=== PATIENT | male | born 1940 | race Caucasian/White ===

== ENCOUNTER 2016-12-23 19:52 | Inpatient (IN) | payer OTHER ==
[2016-12-23 20:13] VITALS: BMI 28.2
--- NOTE | 2016-12-23 20:18 | PDOC ---
History of Present Illness - General History Source: Patient Exam Limitations: No Limitations <Dawood Preciado - Last Filed: 12/23/16 21:54> - General History Source: Patient Exam Limitations: No Limitations - History of Present Illness Initial Comments: 12/23/16 20:32 The patient is a 76 year old male with significant past medical history of hypertension, diabetes, liver cirrhosis (nonalcoholic related) and asthma who presents to the ED with midsternal chest pain that began earlier today. Patient reports he was in his usual state of health when approximately 12pm he developed a nonradiating midsternal chest pain that he describes as feeling restricted. Reports associated diaphoresis and SOB worsen with exertion. Denies lightheadedness, jaw pain, shoulder pain, arm pain, leg swelling, nausea , or vomiting. States he is being followed-up by Dr. Prado for a yearly check- up where he has an ECHO done every year for unknown reasons. The patient denies fever, chills, cough, abdominal pain, and diarrhea. Allergies: NKDA Social History: Denies alcohol, tobacco, or drug use. Past Surgical History: None reported PCP: Dr. Micheline Elias Cardio: Dr. Robi Prado <Nazia Alvarez - Last Filed: 12/23/16 23:10> - General Chief Complaint: Chest Pain Stated Complaint: CHEST PAIN Time Seen by Provider: 12/23/16 20:10 Past History - Past Medical History Diabetes: Yes (type 2) HTN: Yes - Psycho/Social/Smoking Cessation Hx Suicidal Ideation: No Smoking History: Former smoker Have you smoked in the past 12 months: No Information on smoking cessation initiated: No <Dawood Preciado - Last Filed: 12/23/16 21:54> <Nazia Alvarez - Last Filed: 12/23/16 23:10> - Past Medical History Allergies/Adverse Reactions: Allergies Allergy/AdvReac Type Severity Reaction Status Date / Time No Known Allergies Allergy Verified 12/23/16 20:10 Home Medications: Ambulatory Orders Losartan Potassium [Cozaar -] 50 mg PO DAILY 12/23/16 Metformin HCl [Glucophage -] 500 mg PO BID 12/23/16 Salmeterol/Fluticasone [Advair 500Mcg/50Mcg -] 1 inh IH BID 12/23/16 Review of Systems - Review of Systems Able to Perform ROS?: Yes Comments:: 12/23/16 20:32 CONSTITUTIONAL: +diaphoresis Absent: fever, chills, generalized weakness, malaise, loss of appetite HEENT: Absent: rhinorrhea, nasal congestion, throat pain, throat swelling, difficulty swallowing, mouth swelling, ear pain, eye pain, visual Changes CARDIOVASCULAR: +chest pain Absent: syncope, palpitations, irregular heart rate, lightheadedness , peripheral edema RESPIRATORY: +SOB, dyspnea on exertion Absent: cough, orthopnea, wheezing, stridor, hemoptysis GASTROINTESTINAL: Absent: abdominal pain, abdominal distension, nausea, vomiting, diarrhea, constipation, melena, hematochezia GENITOURINARY: Absent: dysuria, frequency, urgency, hesitancy, hematuria, flank pain, genital pain MUSCULOSKELETAL: Absent: myalgia, arthralgia, joint swelling SKIN: Absent: rash, itching, pallor NEUROLOGIC: Absent: headache, focal weakness or paresthesias, dizziness, unsteady gait, seizure, mental status changes, bladder or bowel incontinence <Nazia Alvarez - Last Filed: 12/23/16 23:10> *Physical Exam - Vital Signs Last Vital Signs Temp Pulse Resp BP Pulse Ox 97.8 F 78 20 165/61 98 12/23/16 20:11 12/23/16 20:11 12/23/16 20:11 12/23/16 20:11 12/23/16 20:11 <Dawood Preciado - Last Filed: 12/23/16 21:54> - Vital Signs Last Vital Signs Temp Pulse Resp BP Pulse Ox 97.8 F 78 20 165/61 98 12/23/16 20:11 12/23/16 20:11 12/23/16 20:11 12/23/16 20:11 12/23/16 20:11 - Physical Exam Comments: 12/23/16 20:32 GENERAL: Well developed, well nourished. Awake and alert. No acute distress. HEENT: Normocephalic, atraumatic. PERRLA, EOMI. No conjunctival pallor. Sclera are non- icteric. Moist mucous membranes. Oropharynx is clear. NECK: Supple. Full ROM. No JVD. No thyromegaly. No lymphadenopathy. CARDIOVASCULAR: Regular rate and rhythm. Holosystolic murmur that radiates to the carotids. No rubs or gallops. PULMONARY: No evidence of respiratory distress. Lungs clear to auscultation bilaterally. No wheezing, rales or rhonchi. ABDOMINAL: Soft. Non-tender. Non-distended. No rebound or guarding. No organomegaly. Normoactive bowel sounds. MUSCULOSKELETAL Normal range of motion at all joints. No bony deformities or tenderness. No CVA tenderness. EXTREMITIES: No cyanosis. No clubbing. No edema. No calf tenderness. SKIN: Warm and dry. Normal capillary refill. No rashes. No jaundice. NEUROLOGICAL: Alert, awake, appropriate. Cranial nerves 2-12 intact. Moving all extremities. No gross focal neurological deficits. <Nazia Alvarez - Last Filed: 12/23/16 23:10> Heart Score/ECG Review - ECG Impressions Comment:: 12/23/16 20:33 NSR @80bpm Cannot r/o anterior infarct Abnormal ECG <Nazia Alvarez - Last Filed: 12/23/16 23:10> ED Treatment Course - LABORATORY CBC & Chemistry Diagram: 12/23/16 20:15 12/23/16 20:15 <Dawood Preciado - Last Filed: 12/23/16 21:54> - LABORATORY CBC & Chemistry Diagram: 12/23/16 20:15 12/23/16 20:15 <Nazia Alvarez - Last Filed: 12/23/16 23:10> Medical Decision Making - Medical Decision Making 12/23/16 21:54 Dr. Preciado: The scribe's documentation has been prepared under my direction and personally reviewed by me in its entirery. I confirm that the note above accurately reflects all work, treatment, procedures, and medical decision making performed by me. Pt with c/o cp today. chest pain free right now. Troponin 0.09. Will admit to tele. <Dawood Preciado - Last Filed: 12/23/16 21:54> - Medical Decision Making 12/23/16 22:[address] Micheline Elias (via answering service) at 22:26 Awaiting call back 12/23/16 23:01 Patient's case discussed with Dr. Elias at 23:01 <Nazia Alvarez - Last Filed: 12/23/16 23:10> *DC/Admit/Observation/Transfer - Discharge Dispostion Admit: Yes <Dawood Preciado - Last Filed: 12/23/16 21:54> - Attestations Scribe Attestion: 12/23/16 20:33 Documentation prepared by Nazia Alvarez, acting as medical insurance verifier for Dawood Preciado MD <Nazia Alvarez - Last Filed: 12/23/16 23:10> Diagnosis at time of Disposition: Chest pain Qualifiers: Chest pain type: precordial pain Qualified Code(s): R07.2 - Precordial pain - Discharge Dispostion Condition at time of disposition: Stable - Referrals Referrals: Micheline Elias MD [Primary Care Provider] -
[2016-12-23] MEDS ORDERED: ASPIRIN 81 MG CHEWABLE TABLETS PO ONE (20:27)
[2016-12-23] MEDS ORDERED: ASPIRIN 81 MG CHEWABLE TABLETS ONE (20:30)
[2016-12-23 20:44] LABS: BASOPHIL 1.3 % (0-2.0); MCHC 33.1 g/dl (32.0-35.9); MEAN CELL VOLUME 90.5 fl (80-96); MEAN PLT VOLUME 8.7 fl (7.5-11.1); PLATELET COUNT 181 K/MM3 (134-434)
[2016-12-23 20:56] LABS: INR 1.06 (0.82-1.09); PROTHROMBIN TIME (PATIENT) 11.7 SEC (9.98-11.88)
[2016-12-23 21:12] LABS: ALBUMIN 2.8 g/dl (3.4-5.0); BILIRUBIN,TOTAL 0.8 mg/dL (0.2-1.0); CALCIUM 8.2 mg/dL (8.5-10.1); CHOLESTEROL 245 mg/dL (50-200); COCKROFT - GAULT 56.96; CREATININE 1.2 mg/dL (0.7-1.3); MAGNESIUM 2.4 mg/dL (1.8-2.4); TOT PROT 6.8 g/dl (6.4-8.2)
[2016-12-23 21:14] LABS: TROPONIN I 0.09 ng/ml (0.00-0.05)
[2016-12-24 04:42] LABS: LDL CHOLESTEROL (ONLY SJRH) 141 mg/dL (5-100)
[2016-12-24 04:56] LABS: TROPONIN I 0.1 ng/ml (0.00-0.05)
--- NOTE | 2016-12-24 07:29 | HP ---
Admitting History and Physical - Primary Care Physician PCP: Micheline Elias - Admission Chief Complaint: chest pain, dyspnea History of Present Illness: For past month pt has had exertional dyspnea and chest tightness upon walking up one flight of stairs. Yesterday pain lasted several hours so he came to er, upon arrival he was already pain free. Also noted to be anemic-/laura thought it was upper GI loss-had colonosocpy in 2016 with some polyps, but no major issues. History Source: Patient Limitations to Obtaining History: No Limitations - Past Medical History Cardiovascular: Yes: Aortic Stenosis, HTN, Hyperlipdemia Hepatobiliary: Yes: Cirrhosis (non-alcoholic) Heme/Onc: Yes: Anemia Endocrine: Yes: Diabetes Mellitus - Past Surgical History Past Surgical History: Yes: Cataract Removal - Smoking History Smoking history: Former smoker Have you smoked in the past 12 months: No - Alcohol/Substance Use Hx Alcohol Use: No - Social History ADL: Independent History of Recent Travel: No Home Medications - Allergies Allergies/Adverse Reactions: Allergies Allergy/AdvReac Type Severity Reaction Status Date / Time No Known Allergies Allergy Verified 12/23/16 20:10 - Home Medications Home Medications: Ambulatory Orders Losartan Potassium [Cozaar -] 50 mg PO DAILY 12/23/16 Metformin HCl [Glucophage -] 500 mg PO BID 12/23/16 Salmeterol/Fluticasone [Advair 500Mcg/50Mcg -] 1 inh IH BID 12/23/16 Family Disease History - Family Disease History Family Disease History: Other: Father ( of old age), Mother ( of TB) Review of Systems - Review of Systems Constitutional: reports: No Symptoms Eyes: reports: No Symptoms HENT: reports: No Symptoms Neck: reports: No Symptoms Cardiovascular: reports: Chest Pain, Shortness of Breath (exertional) Genitourinary: reports: No Symptoms Musculoskeletal: reports: No Symptoms Integumentary: reports: No Symptoms Neurological: reports: Headache Physical Examination Vital Signs: Vital Signs Temperature 97.8 F 12/23/16 20:11 Pulse Rate 74 12/24/16 05:45 Respiratory Rate 20 12/24/16 05:45 Blood Pressure 122/61 12/24/16 05:45 O2 Sat by Pulse Oximetry (%) 96 12/24/16 02:18 Constitutional: Yes: Well Nourished, No Distress Eyes: Yes: Conjunctiva Clear HENT: Yes: Normocephalic Neck: Yes: Trachea Midline Cardiovascular: Yes: Regular Rate and Rhythm, Murmur Respiratory: Yes: CTA Bilaterally Gastrointestinal: Yes: Normal Bowel Sounds, Soft, Abdomen, Obese Extremities: Yes: WNL Edema: No Neurological: Yes: WNL ...Motor Strength: WNL Imaging - Results EKG: Report Reviewed Problem List - Problems (1) Chest pain Code(s): R07.9 - CHEST PAIN, UNSPECIFIED Qualifiers: Chest pain type: precordial pain Qualified Code(s): R07.2 - Precordial pain (2) Hypertension Code(s): I10 - ESSENTIAL (PRIMARY) HYPERTENSION Qualifiers: Hypertension type: essential hypertension Qualified Code(s): I10 - Essential (primary) hypertension (3) Diabetes mellitus Code(s): E11.9 - TYPE 2 DIABETES MELLITUS WITHOUT COMPLICATIONS Qualifiers: Diabetes mellitus type: type 2 Diabetes mellitus complication status: without complication (4) Hyperlipidemia Code(s): E78.5 - HYPERLIPIDEMIA, UNSPECIFIED Qualifiers: Hyperlipidemia type: unspecified Qualified Code(s): E78.5 - Hyperlipidemia, unspecified Assessment/Plan scheduled for dobutamine stress echo this am f/up pending results
[2016-12-24] MEDS ORDERED: metFORMIN HCL 500 MG TABLET (FP) PO SCH (08:30)
--- NOTE | 2016-12-24 09:08 | EKG ---
Test Reason : Blood Pressure : / mmHG Vent. Rate : 080 BPM Atrial Rate : 080 BPM P-R Int : 148 ms QRS Dur : 088 ms QT Int : 378 ms P-R-T Axes : 036 049 -06 degrees QTc Int : 435 ms POOR DATA QUALITY, INTERPRETATION MAY BE ADVERSELY AFFECTED NORMAL SINUS RHYTHM CANNOT RULE OUT ANTERIOR INFARCT , AGE UNDETERMINED NONSPECIFIC ST DEPRESSION ABNORMAL ECG WHEN COMPARED WITH ECG OF 26-JUN-2007 11:37, NONSPECIFIC T WAVE ABNORMALITY NOW EVIDENT IN LATERAL LEADS Confirmed by DEVONTE HURT MD ([id number]) on 12/24/2016 9:08:03 AM Referred By: Confirmed By:DEVONTE HURT MD
--- NOTE | 2016-12-24 09:20 | CONSULT ---
Consult - text type - Consultation Consultation Note: Cardiology EF 35%, moderate stable Rec: Dobutamine Echocardiogram reveals severe , with 1.1, 4 m/sec, 73 mmHg Persantine nuclear stress test to continue Discharge after stress test patient may need AVR electively
[2016-12-24] MEDS ORDERED: DOBUTAMINE HCL 100,000 MCG in DEXTROSE 5%-WATER - 92 ML IVPB ONE (09:45)
[2016-12-24] MEDS ORDERED: PANTOPRAZOLE 40 MG TABLET (FP) PO SCH (10:00)
[2016-12-24] MEDS ORDERED: BUDESONIDE/FORMETEROL FUMARATE 160/4.5 mcg INHALER IH SCH (10:00)
[2016-12-24] MEDS ORDERED: LOSARTAN POTASSIUM 50 MG TABLET (FP) PO SCH (10:00)
[2016-12-24] MEDS ORDERED: DIPYRIDAMOLE STRESS TEST 45.3 MG in DEXTROSE 5%-WATER - 36.24 ML IVPB ONE (10:00)
[2016-12-24 15:03] LABS: TROPONIN I 0.07 ng/ml (0.00-0.05)
[2016-12-24 16:06] VITALS: BP 112/51; PULSE 82; TEMP 98.2
--- NOTE | 2016-12-24 18:35 | DS ---
Physical Examination Vital Signs: Vital Signs Temperature 98.2 F 12/24/16 16:02 Pulse Rate 82 12/24/16 16:02 Respiratory Rate 16 12/24/16 16:02 Blood Pressure 112/51 12/24/16 16:02 O2 Sat by Pulse Oximetry (%) 98 12/24/16 16:02 Constitutional: Yes: No Distress, Calm HENT: Yes: Normocephalic Neck: Yes: Trachea Midline Cardiovascular: Yes: Regular Rate and Rhythm, Murmur (systolic) Respiratory: Yes: CTA Bilaterally Edema: No Discharge Summary Reason For Visit: CHEST PAIN Hospital Course: admitted for chest pain, resolved by the time he came to er. echo shows mod-severe , serial cardiac enzymes negative. NM stress test with mild apical ischemia. D/w - will need elective vavuloplasty/repair. medically stable to dc home with close outpt f/up to discuss further care. avoid exertion until then. Condition: Stable - Instructions Diet, Activity, Other Instructions: avoid exertion, should chest pain recur return to er f/up with and next week Referrals: Micheline Elias MD [Primary Care Provider] - Disposition: HOME - Home Medications Comprehensive Discharge Medication List: Ambulatory Orders Losartan Potassium [Cozaar -] 50 mg PO DAILY 12/23/16 Metformin HCl [Glucophage -] 500 mg PO BID 12/23/16 Salmeterol/Fluticasone [Advair 500Mcg/50Mcg -] 1 inh IH BID 12/23/16 Pantoprazole Sodium [Protonix -] 40 mg PO DAILY #30 tablet 12/24/16
[2016-12-25] MEDS ORDERED: ASPIRIN COATED 81 MG TABLET.EC PO SCH (10:00)
== END 2016-12-24 16:06 | disposition home or self-care (01) | DRG 307 ==
LOC: SUPCPDRO 19:52 → JER 19:52 → JERBED 21:45 → UNDOADMIN 23:13
PROVIDERS: ADMIT Internal Medicine; ATTEND Internal Medicine
DX: I35.0 Nonrheumatic aortic (valve) stenosis (principal); R07.9 Chest pain, unspecified; I10 Essential (primary) hypertension; E78.5 Hyperlipidemia, unspecified; E11.9 Type 2 diabetes mellitus without complications
CPT/HCPCS: 36415; 71010-TC; 78452-TC; 80053; 80061; 82550; 82553; 83721; 83735; 84484; 85025; 85610; 93005; 93010; 93017; 93351; 99283-25; A9502; J1245